=== PATIENT | male | born 1955 | race Caucasian/White ===

== ENCOUNTER 2018-01-01 09:42 | Day surgery (SDC) | payer OTHER ==
[~2018-01-01] VITALS: Ht 170.2 cm; Wt 103.1 kg
[~2018-01-01 09:42] MED LIST: CEPH500 PO
== END 2018-01-01 11:39 | disposition home or self-care (01) ==
LOC: ORSCSDS 09:42
PROVIDERS: Internal Medicine Gastroenterology
PROC: 0DBK8ZX Excision of Ascending Colon, Via Natural or Artificial Opening Endoscopic, Diagnostic (ICD-10-PCS; principal; 2018-01-01 11:00)
DX: Z12.11 Encounter for screening for malignant neoplasm of colon (principal); D12.2 Benign neoplasm of ascending colon; K64.8 Other hemorrhoids; K57.30 Diverticulosis of large intestine without perforation or abscess without bleeding; I10 Essential (primary) hypertension; N40.0 Benign prostatic hyperplasia without lower urinary tract symptoms
CPT/HCPCS: 88305; J7120

== ENCOUNTER 2019-01-03 08:49 | Emergency (ER) | payer OTHER ==
[~2019-01-03] VITALS: Ht 180.3 cm; Wt 104.3 kg
[2019-01-03 12:31] LABS: Source, Urine Clean Catch
[2019-01-03 12:38] LABS: Bilirubin, Urine Neg (Neg); Blood, Urine Neg (Neg); Glucose Qualitative, Urine Neg (Neg); Ketones, Urine Neg (Neg); Leukocyte Esterase, Urine Neg (Neg); Nitrite, Urine Neg (Neg); Protein, Urine Neg (Neg); Urobilinogen, Urine NORM (Normal)
[2019-01-03 12:47] LABS: BASOPHILS ABSOLUTE AUTO 0.03 K/mm3 (0.00-0.23); BASOPHILS PERCENT AUTO 1 % (0-2); EOSINOPHILS ABSOLUTE AUTO 0.06 K/mm3 (0.00-0.68); EOSINOPHILS PERCENT AUTO 1 % (0-6); Hematocrit 44.4 % (37.0-53.0); IMMATURE GRAN ABSOLUTE AUTO 0.02 K/mm3 (0.00-0.10); IMMATURE GRAN PERCENT AUTO 0 % (0-1); LYMPHOCYTES PERCENT AUTO 24 % (21-46); MONOCYTES ABSOLUTE AUTO 0.53 K/mm3 (0.16-1.47); MONOCYTES PERCENT AUTO 8 % (4-13); Mean Corpuscular HGB 29.6 pg (26.0-34.0); Mean Corpuscular HGB Conc 33.8 g/dL (31.5-36.5); Mean Corpuscular Volume 88 fL (80-100); NEUTROPHILS ABSOLUTE AUTO 4.32 K/mm3 (1.96-9.15); NEUTROPHILS PERCENT AUTO 66 % (41-73); Platelet Count 315 K/mm3 (150-400); RDW Coefficient Variation 12.4 % (11.7-14.2); RDW Standard Deviation 39.6 fL (35.1-46.3); Red Blood Cell Count 5.07 M/mm3 (4.30-5.90); White Blood Cell Count 6.56 K/mm3 (4.00-11.30)
[2019-01-03 12:59] LABS: Appearance, Urine Clear (Clear); Color, Urine Pale Yellow (P-Yellow)
[2019-01-03 13:02] LABS: Alanine Aminotransfer (ALT/SGP 26 U/L (12-78); Albumin/Globulin Ratio 1.4 (0.8-1.8); Alk Phos 62 U/L (50-136); Anion Gap 6 mmol/L (6-16); Aspartate Aminotrans (AST/SGOT 14 U/L (12-37); Bilirubin, Total 0.6 mg/dL (0.1-1.0); Blood Urea Nitrogen 12 mg/dL (8-24); Bun/Creatinine Ratio 12.9 (12.0-20.0); CO2, Blood 28 mmol/L (21-32); Calcium, Blood 8.5 mg/dL (8.5-10.1); Chloride, Blood 107 mmol/L (98-108); Creatinine, Blood 0.93 mg/dL (0.60-1.20); Globulin, Blood 2.8 g/dL (2.2-4.0); Glomerular Filtration Rate >60 (60-); Glucose, Blood 104 mg/dL (70-99); Potassium, Blood 3.7 mmol/L (3.5-5.5); Sodium, Blood 141 mmol/L (136-145); Total Protein, Blood 6.8 g/dL (6.4-8.2)
== END 2019-01-03 15:14 | disposition home or self-care (01) ==
LOC: ER 08:49
PROVIDERS: Emergency Medicine
DX: R53.1 Weakness (principal); N28.1 Cyst of kidney, acquired; R10.9 Unspecified abdominal pain; R60.0 Localized edema
CPT/HCPCS: 36415; 74177; 80053; 81003; 82550; 83690; 85025; 99284-25; Q9967

== ENCOUNTER 2023-02-17 08:42 | Day surgery (SDC) | payer OTHER ==
[~2023-02-17] VITALS: Ht 180.3 cm; Wt 102.0 kg
--- NOTE | 2023-02-17 09:32 | NUR ---
02/17/23 0932 Raul Orantes CALL LIGHT WITHIN REACH. TETRACAINE IN LEFT EYE AT 0925 AND PLEDGETT AT 0900
--- NOTE | 2023-02-17 11:21 | NUR ---
02/17/23 1121 Jamal Schaefer PT REPORTED SINGLE, LARGE FLOATER IN VISION. DR. LOBATO CONSULTED AND APPROVED PT'S DISCHARGE. PT INSTRUCTED TO CALL IF HE SEES NUMEROUS FLOATERS, PER DR. LOBATO'S DIRECTIONS. PT HYPERTENSIVE IN STEP DOWN . HE WAS ADVISED TO MONITOR B/P AND FOLLOW UP WITH PCP IMMEDIATELY.
== END 2023-02-17 11:15 | disposition home or self-care (01) ==
LOC: ORSCSDS 08:42
PROVIDERS: Student in an Organized Health Care Education/Training Program
PROC: 08RK3JZ Replacement of Left Lens with Synthetic Substitute, Percutaneous Approach (ICD-10-PCS; principal; 2023-02-17 10:00)
DX: H25.12 Age-related nuclear cataract, left eye (principal)
CPT/HCPCS: J2001; J2250; J3010; J7040; V2632

== ENCOUNTER 2025-09-04 06:56 | Day surgery (SDC) | payer OTHER ==
[~2025-09-04] VITALS: Ht 180.3 cm; Wt 99.0 kg
[2025-09-04] VITALS (9 sets, daily range): BP systolic 137–186; BP diastolic 89–109
[~2025-09-04 06:56] MED LIST changes: +ASCO500 PO; +CeFAZolin Sodium 2,000 MG in NS 100 ML IV SCH; +LOSA25 PO; +LYCOPENE10 MG PO; +OLAN2.5 PO; +OXYC5 PO; +TAMS.4ER PO
[2025-09-04] MEDS ORDERED: CeFAZolin Sodium 2,000 MG VIAL ONE (08:08)
--- NOTE | 2025-09-04 08:10 | NUR ---
History, Chart, Medications and Allergies reviewed before start of procedure. Patient confirms NPO status and agrees with scheduled surgery. Pre-Op teaching done. Pt verbalizes understanding. Patient reports completing Chlorhexadine shower X2 prior to admission to hospital. Lungs clear T/O to Auscultation.
[2025-09-04] MEDS ORDERED: Bupivacaine 0.5% HCl 5 MG/ML 30MLVIAL ONE (08:35)
[2025-09-04] MEDS ORDERED: FentaNYL Citrate 50 MCG/ML 2 ML Injection ONE (08:46)
[2025-09-04] MEDS ORDERED: Ondansetron HCl 2 MG / ML 2ML Vial ONE (09:05)
[2025-09-04] MEDS ORDERED: Dexamethasone Sod Phos 10 MG/ML 1ML VIAL ONE (09:05)
[2025-09-04] MEDS ORDERED: FentaNYL Citrate 50 MCG/ML 2 ML Injection IV PRN ×3 (09:05)
[2025-09-04] MEDS ORDERED: HYDROmorphone HCl/Pf 1MG SYR IV PRN (09:05)
[2025-09-04] MEDS ORDERED: Ondansetron HCl 2 MG / ML 2ML Vial IV PRN (09:05)
[2025-09-04] MEDS ORDERED: Labetalol HCL 5 MG/ML 4ML Injection (Single Dose) IV PRN (09:05)
--- NOTE | 2025-09-04 10:18 | NUR ---
09/04/25 1018 LUKASZ MONSIVAIS SCRATCH LIKE RED MARKINGS NOTED ON PT CHEST PRIOR TO OR BRING BACK. PROVIDER AWARE.
--- NOTE | 2025-09-04 10:52 | NUR ---
DISCHARGE NOTE PT A&OX4, BREATHING RA, VSS, NO COMPLAINTS, PT TOLERATING PO INTAKE. Patient up to Ambulate independently. Gait steady. Discharge instructions reviewed with patient. Patient verbalizes understanding. Copy given to patient to take home. Dressing to procedure site clean, dry, intact with no visible drainage, swelling, erythema or bruising noted. Discharged via wheelchair to private car for ride home.
== END 2025-09-04 10:50 | disposition home or self-care (01) ==
LOC: ORSCMMR 06:56 → ORD 08:30 → ORSCMMR 08:30 → ORD 09:45 → ORSCMMR 10:50 → ORD 12:15
DX: C65.2 Malignant neoplasm of left renal pelvis (principal); I10 Essential (primary) hypertension; Z87.891 Personal history of nicotine dependence; N40.0 Benign prostatic hyperplasia without lower urinary tract symptoms; Z79.899 Other long term (current) drug therapy
CPT/HCPCS: 77001; C1788; J0690; J1100; J1642; J2405; J2704; J3010; J7120

== ENCOUNTER → 2025-09-12 | Outpatient (CLI) | payer OTHER ==
[~2025-09-12] MED LIST changes: -CeFAZolin Sodium 2,000 MG in NS 100 ML IV SCH
[2025-09-12 10:39] LABS: Source, Urine Clean Catch
[2025-09-12 10:44] LABS: Bilirubin, Urine Neg (Neg); Color, Urine Yellow (P-Yellow); Glucose Qualitative, Urine 1+ (Neg); Ketones, Urine Neg (Neg); Leukocyte Esterase, Urine 3+ (Neg); Protein, Urine 3+ (Neg); Specific Gravity, Urine 1.020 (1.003-1.022); Urobilinogen, Urine NORM (Normal)
[2025-09-12 10:52] LABS: White Blood Cells, Urine TNTC /hpf (0-5)
== END ==
LOC: LAB SHORT 09:57 → LAB 09:57
PROVIDERS: Internal Medicine Hematology & Oncology
DX: C65.2 Malignant neoplasm of left renal pelvis (principal)
CPT/HCPCS: 81001; 87077; 87086; 87186